=== PATIENT | male | born 1940 | race Caucasian/White ===

== ENCOUNTER → 2018-03-10 | Day surgery (SDC) | payer BC, MEDICARE ==
[~2018-03-10] VITALS: Ht 180.3 cm; Wt 86.0 kg
[~2018-03-10] MED LIST: BACITRACIN TOP OINT 15 GM TUBE ONE; BUPIVACAINE/EPINEPHRINE 0.25% 50 ML VIAL ONE; CHLORHEXIDINE GLUCONATE 2 % 1 PACK (2 CLOTHS) TOPICAL PRN; CLOB0.055 TOPICAL; DEXAMETHASONE SOD PHOS 4 MG/ML VIAL ONE; LACTATED RINGER'S 1000 ML IV PRN; METOPROLOL TARTRATE 25 MG TAB PO PRN; MIDAZOLAM HCL 2 MG/2 ML VIAL ONE; POVIDONE IODINE 5% (ANTISEPSIS KIT) 4 APPLICATIONS EACH NARE PRN; SODIUM CHLORID 0.9% 500 ML IV PRN; ceFAZolin 1,000 MG/NS 100 ML IV SCH
[2018-03-10 10:40] VITALS: PULSE 62
[2018-03-10 11:00] VITALS: TEMP 97.9
[2018-03-10 11:50] VITALS: BP 167/89; PULSE 57; RESP 16; O2SAT 97
--- NOTE | 2018-03-10 17:06 | EKG ---
Date Performed: 03/10/2018 Time Performed: 08:58:04 PTAGE: 77 years EKG: SINUS BRADYCARDIA BORDERLINE ECG NO PREVIOUS TRACING DOCTOR: Kimani Dempsey Interpretating Date/Time 03/10/2018 17:06:00
--- NOTE | 2018-03-18 18:56 | PD.OP ---
Operative Report Date of Surgery: Mar 10, 2018 Preoperative Diagnosis: (1) Mucous cyst of digit of right hand Postoperative Diagnosis: (1) Mucous cyst of digit of right hand Procedure: Right middle finger mucous cyst excision (75960) Anesthesia: General Surgeon: Juan Beaver [employer] Vice President(s): . Operation and Findings: 77-year-old male who presented with a right middle finger mucous cyst. Risks benefits and alternative treatments were discussed. Patient elected to assume the risks of excision of the above cyst. Informed consent was obtained. Surgical site was marked in the preoperative holding bay. The patient was given antibiotics on-call to the operating room. The patient was taken to the operating room and all pressure points were padded. A surgical timeout was performed. After the smooth induction of general anesthesia a digital block using quarter percent Marcaine with epinephrine was performed. The surgical site was prepped and draped in the usual sterile fashion. The right middle finger was exsanguinated and a tourniquet was placed using the cut finger of a surgical glove. A right angle incision was made over the dorsal middle finger DIP extending laterally and distally along the side of the nail abnormality. A distally placed skin flap was raised until the extensor tendon mucous cyst and collateral ligament was easily visualized. The mucous cyst was excised and sent for permanent pathology. An underlying osteophyte was excised using the rongeur. The skin was reapproximated with interrupted 4-0 nylon in a horizontal mattress fashion. The tourniquet was released. Total tourniquet time was 18 minutes. Surgical site was cleaned. The wound was dressed with bacitracin Xeroform gauze dry gauze fluffs a finger splint Emile wrap and a Coban. The patient was awoken from anesthesia and arrived stable and doing well to the PACU. All needle sponge and instrument counts were correct 2. Juan Beaver MD Mar 18, 2018 18:56
== END | disposition home or self-care (01) ==
LOC: PHSDC 07:54
PROVIDERS: ATTEND Student in an Organized Health Care Education/Training Program
DX: M71.349 Other bursal cyst, unspecified hand (principal); Z01.810 Encounter for preprocedural cardiovascular examination
CPT/HCPCS: 01810; 26160; 88304; 93005; J0690; J1100; J2250; J3010; J7120